=== PATIENT | female | born 1985 | race Caucasian/White ===

== ENCOUNTER 2017-05-26 11:35 | Emergency (ER) | payer SELFPAY ==
[2017-05-26 12:04] VITALS: BP 150/97
--- NOTE | 2017-05-26 12:34 | UC ---
UC Dental HPI - HPI Summary HPI Summary: TWO DAYS OF LEFT LOWER DENTAL PAIN AND SWELLING. HAS APPOINTMENT ON FRIDAY WITH DENTIST. NO FEVER. NO RASHES. - History of Current Complaint Chief Complaint: UCDentalProblem Stated Complaint: DENTAL PAIN Time Seen by Provider: 05/26/17 12:00 Hx Obtained From: Patient Hx Last Menstrual Period: IUD Onset/Duration: Gradual Onset, Lasting Days, Still Present Severity: Moderate Aggravating: Chewing Related History: Previous Dental Care on Same Tooth - Allergies/Home Medications Allergies/Adverse Reactions: Allergies Allergy/AdvReac Type Severity Reaction Status Date / Time Amoxicillin Allergy Hives/Diff. Verified 05/26/17 12:05 Breathing/I tching Diphenhydramine Allergy Palpitation Verified 05/26/17 12:05 [From Benadryl] s Cortisone AdvReac Severe Hives Verified 05/26/17 12:05 PMH/Surg Hx/FS Hx/Imm Hx Previously Healthy: Yes Other History Of: Negative For: Anticoagulant Therapy - Surgical History Surgical History: Yes Surgery Procedure, Year, and Place: GALLBLADDER. . - Family History Known Family History: Negative: Diabetes - Social History Occupation: Employed Full-time Lives: With Family Alcohol Use: Occasionally Substance Use Type: None Smoking Status (MU): Never Smoked Tobacco Have You Smoked in the Last Year: No Review of Systems Constitutional: Negative Skin: Negative Eyes: Negative ENT: Dental Pain Respiratory: Negative Cardiovascular: Negative Gastrointestinal: Negative Genitourinary: Negative Motor: Negative Neurovascular: Negative Musculoskeletal: Negative Neurological: Negative Psychological: Negative All Other Systems Reviewed And Are Negative: Yes Physical Exam Triage Information Reviewed: Yes Appearance: Well-Appearing, No Pain Distress, Well-Nourished Vital Signs: Initial Vital Signs Temp 97.8 F 05/26/17 12:02 Pulse 71 05/26/17 12:02 Resp 20 05/26/17 12:02 BP 150/97 05/26/17 12:02 Pulse Ox 99 05/26/17 12:02 Vital Signs Reviewed: Yes Eye Exam: Normal ENT Exam: Normal ENT: Positive: Normal ENT inspection, Hearing grossly normal, TMs normal Dental Exam: Normal Neck exam: Normal Neck: Positive: Supple, Nontender Respiratory Exam: Normal Respiratory: Positive: Chest non-tender, Lungs clear, Normal breath sounds, No respiratory distress, No accessory muscle use Cardiovascular Exam: Normal Cardiovascular: Positive: RRR, No Murmur, Pulses Normal Abdominal Exam: Normal Musculoskeletal Exam: Normal Musculoskeletal: Positive: Strength Intact, ROM Intact Neurological Exam: Normal Psychological Exam: Normal Skin Exam: Normal Dental Complaint Course/Dx - Differential Dx/Diagnosis Differential Diagnosis/Dx: Odontogenic Pain, Pharyngitis Provider Diagnoses: DENTAL ABSCESS/ODONTOGENIC PAIN (#18, 19) Discharge - Discharge Plan Condition: Stable Disposition: HOME Prescriptions: Clindamycin Cap(NF) [Cleocin 300 mg Cap(NF)] 300 mg PO TID #21 cap HYDROcodone/ACETAMIN 5-325 MG* [[place] 5-325 TAB*] 1 tab PO Q8H PRN #9 tab MDD three tabs PRN Reason: Pain Patient Education Materials: Dental Abscess (ED), Toothache (ED) Referrals: [facility] [place] [facility]IAN REFERRAL [Outside] No Primary Care Phys,NOPCP [Primary Care Provider] - Additional Instructions: PRIMARY CARE: There are four major types of clinical preventive care: immunizations, screening , behavioral counseling (sometimes referred to as lifestyle changes), and chemoprevention. All four apply throughout the life span. It is important to establish and to have access to a Primary Care Physician, not only for follow- up regrding acute and chronic problems, but also for preventative care. Images Dental: 1 - PAIN HERE
== END 2017-05-26 12:33 | disposition home or self-care (01) ==
LOC: UCEAST 11:35
DX: K04.7 Periapical abscess without sinus (principal)
CPT/HCPCS: 99212; G0463

== ENCOUNTER 2017-06-25 09:38 | Emergency (ER) | payer OTHER ==
[2017-06-25 09:52] VITALS: BP 154/83
--- NOTE | 2017-06-25 11:13 | UC ---
Headache HPI - HPI Summary HPI Summary: 31 female presents to the urgent care c/o Headache with dizziness and nausea for the past week. Pt reports her CONNELL is on the temporal area w/o any radiation , or photophobia. It is associated with dizziness on and off and mild nausea. Pt states she was evaluated by the auto fleet manager about 1 month ago and her eye glasses were changed. She has not taking anything to alleviate symptoms. Pt denies fever, tinnitus, hearing loss, SOB, chest pain. She feels dizziness when she stands up or rolls over and feel the room is spinning. - History Of Current Complaint Hx Obtained From: Patient Hx Last Menstrual Period: 06/23/17 ?: No Onset/Duration: Gradual Onset, Lasting Weeks, Still Present Onset Of Symptoms: Still Present Currently Pain Is: Moderate Pain Intensity: 5 - headache Pain Scale Used: 0-10 Numeric Timing: Constant Character: Typical Headache Location of Headache: Temporal Aggravating Factor: Other Associated Signs And Symptoms: Positive: Dizziness, Nausea. Negative: Vomiting , Sinus Pressure, Fever, Neck Pain, Neck Stiffness, Visual Changes - Risk Factors SAH Risk Factors: Negative Meningitis Risk Factors: Negative SDH Risk Factors: Negative Temporal Arteritis Risk Factors: Negative <Nella Isidro - Last Filed: 06/26/17 18:44> <Ely Pro - Last Filed: 06/26/17 20:42> - History Of Current Complaint Chief Complaint: UCHeadache Stated Complaint: DIZZY,VISION CHANGE Time Seen by Provider: 06/25/17 10:53 - Allergies/Home Medications Allergies/Adverse Reactions: Allergies Allergy/AdvReac Type Severity Reaction Status Date / Time Amoxicillin Allergy Hives/Diff. Verified 05/26/17 12:05 Breathing/I tching Diphenhydramine Allergy Palpitation Verified 05/26/17 12:05 [From Benadryl] s Cortisone AdvReac Severe Hives Verified 05/26/17 12:05 PMH/Surg Hx/FS Hx/Imm Hx Previously Healthy: Yes Other History Of: Negative For: Anticoagulant Therapy - Surgical History Surgical History: Yes Surgery Procedure, Year, and Place: GALLBLADDER. . - Family History Known Family History: Positive: Hypertension Negative: Diabetes, Blood Disorder - Social History Occupation: Employed Full-time Lives: With Family Alcohol Use: Occasionally Substance Use Type: None Smoking Status (MU): Never Smoked Tobacco Have You Smoked in the Last Year: No <Nella Isidro Last Filed: 06/26/17 18:44> Review of Systems Constitutional: Negative Skin: Negative Eyes: Negative ENT: Negative Respiratory: Negative Cardiovascular: Negative Gastrointestinal: Negative Genitourinary: Negative Motor: Negative Neurovascular: Negative Musculoskeletal: Negative Neurological: Headache, Other - dizziness Psychological: Negative All Other Systems Reviewed And Are Negative: Yes <DariojaNella gibbs Last Filed: 06/26/17 18:44> Physical Exam Triage Information Reviewed: Yes Appearance: Well-Appearing, No Pain Distress, Well-Nourished, Obese Vital Signs: Initial Vital Signs Temp 98.2 F 06/25/17 09:48 Pulse 82 06/25/17 09:48 Resp 06/25/17 09:48 BP 154/83 06/25/17 09:48 Pulse Ox 100 06/25/17 09:48 Vital Signs Reviewed: Yes Eye Exam: Normal Eyes: Positive: Conjunctiva Clear - PERRLA, EOMI, fundi grosly normal, no nystagmus observed ENT Exam: Normal ENT: Positive: Normal ENT inspection, Hearing grossly normal, Pharynx normal, TMs normal Dental Exam: Normal Neck exam: Normal Neck: Positive: Supple, Nontender, No Lymphadenopathy Respiratory Exam: Normal Respiratory: Positive: Chest non-tender, Lungs clear, Normal breath sounds Cardiovascular Exam: Normal Cardiovascular: Positive: RRR, No Murmur, Pulses Normal, Brisk Capillary Refill Abdominal Exam: Normal Abdomen Description: Positive: Nontender, No Organomegaly, Soft. Negative: CVA Tenderness (R), CVA Tenderness (L) Bowel Sounds: Positive: Present Musculoskeletal Exam: Normal Musculoskeletal: Positive: Strength Intact, ROM Intact, No Edema Neurological Exam: Normal - A&O x3, CNII-CNXII w/normal limits. Romberg test negative Psychological Exam: Normal Skin Exam: Normal <Nella Isidro Last Filed: 06/26/17 18:44> Vital Signs: Initial Vital Signs Temp 98.2 F 06/25/17 09:48 Pulse 82 06/25/17 09:48 Resp 06/25/17 09:48 BP 154/83 06/25/17 09:48 Pulse Ox 100 06/25/17 09:48 <Ely Pro - Last Filed: 06/26/17 20:42> Headache Course/Dx - Course Course Of Treatment: 31 female presents to the urgent care c/o Headache with dizziness and nausea for the past week. Pt reports her CONNELL is on the temporal area w/o any radiation, or photophobia. It is associated with dizziness on and off and mild nausea. Pt states she was evaluated by the auto fleet manager about 1 month ago and her eye glasses were changed. She has not taking anything to alleviate symptoms. Pt denies fever, tinnitus, hearing loss, SOB, chest pain. She feels dizziness when she stands up or rolls over and feel the room is spinning. Hx obtained. PE: WNL. The Mayank-Hallpike test performed and dizziness was reproducible, however no nystagmus was observed. Pt Rx Meclizine PO and Naproxen to alleviate symptoms and f/u with PCP an ENT for further evaluation and treatment. Pt BP elevated w/o Hx of HTN, Pt advised on decrease salt intake , monitor BP and f/u with PCP for further evaluation and treatment. Pt understood and agreed and left the clinic ambulating. - Differential Dx/Diagnosis Differential Diagnosis/HQI/PQRI: Migraine, Sinus Headache, Tension Headache, Viral Syndrome, Other - Labyrinthitis, VPPV Provider Diagnoses: 1- Headache. 2-Dizziness. 3-Elevated BP w/o Hx of HTN <Nella Isidro - Last Filed: 06/26/17 18:44> Discharge <Nella Isidro - Last Filed: 06/26/17 18:44> <Ely Pro - Last Filed: 06/26/17 20:42> - Discharge Plan Condition: Stable Disposition: HOME Prescriptions: Meclizine TAB* [Antivert 12.5 TAB*] 25 mg PO TID #30 tab Naproxen TAB* [Naprosyn 250 mg TAB*] 500 mg PO Q8H PRN #30 tab PRN Reason: Headache Patient Education Materials: Acute Headache (ED), Dizziness (ED), Low Sodium Diet (ED) Referrals: No Primary Care Phys,NOPCP [Primary Care Provider] - [facility] [place] [facility]IAN REFERRAL [Outside] - 1 Week Sam Chaparro MD [Medical Doctor] - If Needed Additional Instructions: Please take medications as instructed to alleviate symptoms. If Headache and dizziness increases despite medications please go immediately to the ER for further management. Otherwise f/u with a PCP forn the [facility] referral center for further evaluation and treatment. Decrease salt in your diet and monitor your BP and f/u with PCP. Attestation Statement User Type: Provider - I was available for consult. This patient was seen by the advanced practice provider. The patient was not presented to, seen by, or examined by me.-Dasha <Ely Pro - Last Filed: 06/26/17 20:42>
== END 2017-06-25 11:23 | disposition home or self-care (01) ==
LOC: UCEAST 09:38 → MERGE 09:38 → UCEAST 11:23
DX: R51 Headache (principal); R42 Dizziness and giddiness; R03.0 Elevated blood-pressure reading, without diagnosis of hypertension; R11.0 Nausea; Z90.49 Acquired absence of other specified parts of digestive tract; Z88.1 Allergy status to other antibiotic agents
CPT/HCPCS: 99212; G0463

== ENCOUNTER 2017-07-24 10:18 | Emergency (ER) | payer OTHER ==
[2017-07-24 10:45] VITALS: BP 144/81
--- NOTE | 2017-07-24 16:14 | UC ---
Throat Pain/Nasal Lexx HPI - HPI Summary HPI Summary: st, fever, swollen tonsild x 2 days. concerned for strep. - History of Current Complaint Chief Complaint: UCGeneralIllness Stated Complaint: SORE THROAT Time Seen by Provider: 07/24/17 10:37 Hx Obtained From: Patient Hx Last Menstrual Period: 07/04/17 ?: No Onset/Duration: Sudden Onset, Lasting Days, Still Present Severity: Moderate Pain Intensity: 4 Pain Scale Used: 0-10 Numeric Associated Signs & Symptoms: Positive: Dysphagia, Fever. Negative: Drooling, Wheezing, Hoarseness, Sinus Discomfort, Nasal Discharge, Vomiting, Rash - Allergies/Home Medications Allergies/Adverse Reactions: Allergies Allergy/AdvReac Type Severity Reaction Status Date / Time Amoxicillin Allergy Hives/Diff. Verified 07/24/17 10:38 Breathing/I tching Diphenhydramine Allergy Palpitation Verified 07/24/17 10:38 [From Benadryl] s Cortisone AdvReac Severe Hives Verified 07/24/17 10:38 Home Medications: Home Medications Propranolol TAB* [Inderal TAB*] 20 mg PO BID 07/24/17 [History Confirmed ] PMH/Surg Hx/FS Hx/Imm Hx - Additional Past Medical History Additional PMH: obesity Other Cardiovascular History: neg htn Other Respiratory History: neg asthma Other History Of: Negative For: Anticoagulant Therapy - Surgical History Surgical History: Yes Surgery Procedure, Year, and Place: GALLBLADDER. . - Family History Known Family History: Positive: Hypertension Negative: Diabetes, Blood Disorder - Social History Alcohol Use: Occasionally Substance Use Type: None Smoking Status (MU): Never Smoked Tobacco Have You Smoked in the Last Year: No Review of Systems Constitutional: Fever Skin: Negative Eyes: Negative ENT: Sore Throat Respiratory: Negative Cardiovascular: Negative Gastrointestinal: Negative Neurological: Negative Psychological: Negative All Other Systems Reviewed And Are Negative: Yes Physical Exam Triage Information Reviewed: Yes Appearance: Well-Appearing, No Pain Distress, Obese Vital Signs: Initial Vital Signs Temp 98.3 F 07/24/17 10:42 Pulse 103 07/24/17 10:42 Resp 20 07/24/17 10:42 BP 144/81 07/24/17 10:42 Pulse Ox 98 07/24/17 10:42 Vital Signs Reviewed: Yes Eyes: Positive: Conjunctiva Clear. Negative: Discharge ENT: Positive: Hearing grossly normal, Pharyngeal erythema, TMs normal, Tonsillar swelling, Tonsillar exudate. Negative: Nasal congestion, Nasal drainage, Trismus, Muffled/hoarse voice Neck: Positive: Supple, Tenderness @, Enlarged Nodes @ Respiratory: Positive: Lungs clear, Normal breath sounds, No respiratory distress, No accessory muscle use Cardiovascular: Positive: No Murmur, Tachycardia Musculoskeletal Exam: Normal Neurological: Positive: Alert, Muscle Tone Normal Psychological: Positive: Age Appropriate Behavior Skin Exam: Normal Throat Pain/Nasal Course/Dx - Course Course Of Treatment: meds reviewded. elevated bp likely d/t pt condition - Differential Dx/Diagnosis Differential Diagnosis/HQI/PQRI: Pharyngitis, Tonsillitis, URI Provider Diagnoses: strep, elevated bp without dx of htn Discharge - Discharge Plan Condition: Stable Disposition: HOME Prescriptions: Clindamycin Cap(NF) [Clindamycin Cap 300 mg Cap(NF)] 300 mg PO TID #30 cap predniSONE TAB* [Deltasone TAB*] 40 mg PO DAILY #10 tab Patient Education Materials: Strep Throat (ED) Referrals: No Primary Care Phys,NOPCP [Primary Care Provider] - Additional Instructions: ANTIBIOTIC THERAPY: You have been given an antibiotic prescription. It's important that you take all the medication, unless instructed otherwise by your physician. Failure to complete the entire course can result in relapse of your condition. Common side effects of antibiotics include nausea, intestinal cramping, or diarrhea. Women may develop vaginal yeast infections, and babies can get yeast (thrush) in the mouth following the use of antibiotics. Contact your physician if you develop significant side effects from this medication. Allergy to this antibiotic can result in hives, wheezing, faintness, or itching. If symptoms of allergy occur, stop the medication and call the doctor. ANYTIME YOU TAKE AN ANTIBIOTIC, IT IS IMPORTANT TO REPLENISH THE BODY'S SUPPLY OF "GOOD BACTERIA." YOU CAN GET GOOD BACTERIA FROM HIGH QUALITY CULTURED FOODS SUCH LOCAL YOGURT, SOUR KRAUT, FAVIO JONI, NATURALLY FERMENTED PICKLES AND PROBIOTIC DRINKS. YOU CAN ALSO GET GOOD BACTERIA FROM A PROBIOTIC SUPPLEMENT. FOLLOW-UP CARE: You should establish with a private physician for follow-up care. If you are unable to get a timely appointment, or if you are worsening, call us or return for re-evaluation. An additional resource available to assist in finding the appropriate physician for your health care needs is the Physician Referral Center. You may contact them by calling [phone].
== END 2017-07-24 12:04 | disposition home or self-care (01) ==
LOC: UCEAST 10:18
DX: J02.0 Streptococcal pharyngitis (principal); I10 Essential (primary) hypertension
CPT/HCPCS: 87651; 99212; G0463

== ENCOUNTER 2017-11-20 17:06 | Emergency (ER) | payer OTHER ==
[2017-11-20] MEDS ORDERED: Sulfamethox/Trimethoprim DS 800/160* TAB PO ONE (18:16)
--- NOTE | 2017-11-20 18:41 | ED ---
Skin Complaint - HPI Summary HPI Summary: Pt here w/ ruptured pimple on face followed by pain, swelling. She noticed pimple yesterday - popped it today then also unroofed a scab with tweezers. She feels the area is quite swollen and admits it did not rupture like a typical pimple - no pore identified and seemed like more purulent drainage was expressed than expected. Denies fever, chills but has been feeling run down in general as is currently admitted to the hospital. He has h/o MRSA and she's concerned this could be MRSA infection as well. Denies CONNELL, visual change, trouble breathing or swelling, neck pain/stiffness. NOTE: IUD in place - History of Current Complaint Chief Complaint: EDGeneral Time Seen by Provider: 11/20/17 18:07 Stated Complaint: SORE ON LT CHEEK Hx Obtained From: Patient Hx Last Menstrual Period: 07/04/17 Pain Intensity: 0 - Allergy/Home Medications Allergies/Adverse Reactions: Allergies Allergy/AdvReac Type Severity Reaction Status Date / Time Amoxicillin Allergy Hives/Diff. Verified 07/24/17 10:38 Breathing/I tching Diphenhydramine Allergy Palpitation Verified 07/24/17 10:38 [From Benadryl] s Cortisone AdvReac Severe Hives Verified 07/24/17 10:38 PMH/Surg Hx/FS Hx/Imm Hx Previously Healthy: Yes Endocrine/Hematology History: Denies: Hx Anticoagulant Therapy, Hx Diabetes, Autoimmune Disease Cardiovascular History: Denies: Hx Hypertension, Hx Pacemaker/ICD Respiratory History: Denies: Hx Asthma Sensory History: Denies: Hx Hearing Aid Psychiatric History: Denies: Hx Panic Disorder - Surgical History Surgery Procedure, Year, and Place: GALLBLADDER. . 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 Negative: Fever, Chills Eyes: Negative Negative: Photophobia, Blurred Vision, Diplopia, Drainage, Erythema ENT: Negative Negative: Dental Pain, Sore Throat, Ear Ache, Nasal Discharge Cardiovascular: Negative Respiratory: Negative Gastrointestinal: Negative Positive: no symptoms reported Musculoskeletal: Negative Skin: Other - wound on face Neurological: Negative Psychological: Normal All Other Systems Reviewed And Are Negative: Yes Physical Exam Triage Information Reviewed: Yes Vital Signs On Initial Exam: Initial Vitals Temp Pulse Resp BP Pulse Ox 98.2 F 85 16 158/95 98 11/20/17 17:10 11/20/17 17:10 11/20/17 17:10 11/20/17 17:10 11/20/17 17:10 Vital Signs Reviewed: Yes Appearance: Positive: Well-Appearing - appears fatigued, No Pain Distress, Well- Nourished Skin: Positive: Warm, Dry - 3mm area of scabbing over Lt nasolabial fold - underlying tissue w/ mild edema - TTP - no erythema, no obvious edema, no drainage, no fever to touch Head/Face: Positive: Normal Head/Face Inspection - NTTP Eyes: Positive: Normal, EOMI, Conjunctiva Clear. Negative: Conjunctiva Inflammed, Discharge ENT: Positive: Normal ENT inspection, Hearing grossly normal, Pharynx normal. Negative: Nasal congestion, Nasal drainage Neck: Positive: Supple, No Lymphadenopathy, Tenderness @ - Lt cc LN's are TTP but non-palpable Respiratory/Lung Sounds: Positive: Clear to Auscultation, Breath Sounds Present. Negative: Stridor, Tracheal Deviation Cardiovascular: Positive: Normal, RRR Abdomen Description: Positive: Soft Musculoskeletal: Positive: Normal, Strength/ROM Intact Neurological: Positive: Normal, Sensory/Motor Intact, Alert, Oriented to Person Place, Time, CN Intact II-III Psychiatric: Positive: Normal Diagnostics - Vital Signs Vital Signs Temp Pulse Resp BP Pulse Ox 11/20/17 17:10 98.2 F 85 16 158/95 98 - Laboratory Lab Statement: Any lab studies that have been ordered have been reviewed, and results considered in the medical decision making process. Course/Dx - Course Course Of Treatment: Cleaned wound and attempted to collect drainage but none present. Discussion w/ pt about attempting to heat area and unroof scab to collect drainage (if present) and/or simply initiating anbx to cover MRSA. She prefers the latter. Since she will be staying w/ her here in hospital [facility], requesting 1st dose now and will pick up man remaining dose tomorrow AM at [facility] pharmacy. Advised on conservative care and danger s/sx of when to return to ED or f/u w/ PCP. Pt agrees w/ plan. - Diagnoses Provider Diagnoses: Facial abscess Discharge - Discharge Plan Condition: Stable Disposition: HOME Prescriptions: Sulfamethox/Trimethoprim DS* [Bactrim DS 800/160 TAB*] 1 tab PO BID #19 tab Patient Education Materials: Abscess (ED) Referrals: [facility] PHYS[facility]IAN REFERRAL [Outside] No Primary Care Phys,NOPCP [Primary Care Provider] - Additional Instructions: Wash daily with antibacterial soap and water - do not occlude with ointments, make-up, etc Apply warm compresses, preferably with epsom salt solution Complete antibiotics as directed Follow-up with PCP if symptoms persist, wound starts draining and pain persists , etc *If you develop fever, chills, acute facial edema, difficulty breathing/ swallowing, pain with eye movement, return to ED
[2017-11-20 18:55] VITALS: BP 145/102
== END 2017-11-20 18:54 | disposition home or self-care (01) ==
LOC: ED 17:06
DX: L02.01 Cutaneous abscess of face (principal); Z88.0 Allergy status to penicillin
CPT/HCPCS: A9270-GY

== ENCOUNTER 2018-04-03 19:51 | Emergency (ER) | payer OTHER ==
[2018-04-03 21:12] LABS: ABS Basophils 0.1 10^3/ul (0-0.2); ABS Eosinophils 0.1 10^3/ul (0-0.6); ABS Lymphocytes 1.1 10^3/ul (1.0-4.8); ABS Monocytes 0.6 10^3/ul (0-0.8); ABS Neutrophils 13.8 10^3/ul (1.5-7.7); ABS Nucleated RBC 0 10^3/ul; Eosinophil % 0.4 % (0-6); Hematocrit 42 % (35-47); Hemoglobin 13.8 g/dl (12.0-16.0); Lymphocyte % 7.1 % (25-47); Mean Corpuscular HGB Conc 33 g/dl (31-36); Mean Corpuscular Hemoglobin 28 pg (27-31); Mean Corpuscular Volume 86 fL (80-97); Nucleated Red Blood Cells % 0; Platelet Count 235 10^3/ul (150-450); Red Cell Distribution Width 14 % (10.5-15); White Blood Count 15.6 10^3/ul (3.5-10.8)
[2018-04-03] MEDS ORDERED: LORazepam INJ* 2 MG/ML 1 ML VIAL IV PUSH ONE (21:26)
[2018-04-03] MEDS ORDERED: Ondansetron ODT TAB* 4 MG PO ONE (21:27)
[2018-04-03 21:30] LABS: EGFR Non-African American 73.6 (>60)
--- NOTE | 2018-04-03 21:33 | RAD ---
HISTORY: Head injury, right-sided facial injury COMPARISONS: September 15, 2013 TECHNIQUE: Multiple contiguous axial CT scans were obtained of the head without intravenous contrast. FINDINGS: HEMORRHAGE/INFARCT: There is no hemorrhage or acute infarct. MASSES/SHIFT: There is no mass or shift. EXTRA-AXIAL SPACES: There are no extra-axial fluid collections. SULCI AND VENTRICLES: The sulci and ventricles are normal in size and position for the patient's stated age. CEREBRUM: There are no focal parenchymal abnormalities. BRAINSTEM: There are no focal parenchymal abnormalities. CEREBELLUM: There are no focal parenchymal abnormalities. VESSELS: The vessels are grossly normal. PARANASAL SINUSES: The paranasal sinuses are clear. ORBITS: The orbits are unremarkable. BONES AND SOFT TISSUE: No bone or soft tissue abnormalities are noted. OTHER: None IMPRESSION: NO ACUTE INTRACRANIAL PATHOLOGY.
[2018-04-03] MEDS ORDERED: Iohexol 300* (CONTRAST) 10 ML SDV IV ONE (21:35)
--- NOTE | 2018-04-03 21:36 | RAD ---
HISTORY: Head injury, facial injury COMPARISONS: None TECHNIQUE: Multiple contiguous axial CT scans were obtained of the face without intravenous contrast, with coronal and sagittal multiplanar reformations. FINDINGS: BONES: There is no displaced fracture or dislocation. The orbital rim is intact. The zygomatic arch is intact. The pterygoid plates are intact. ORBITS: The globes are round. The optic nerves are symmetric. The extraocular musculature is normal. There is no post septal or intraconal inflammatory change. There is no retrobulbar hematoma. PARANASAL SINUSES: The paranasal sinuses are clear. BRAIN AND SOFT TISSUE: There is soft tissue swelling along the right lower face OTHER: There is carious disease. IMPRESSION: NO FACIAL FRACTURE. SOFT TISSUE SWELLING
[2018-04-03] MEDS ORDERED: Ketorolac INJ* 30 MG/ML 1 ML VIAL IV PUSH ONE (22:21)
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
[2018-04-03] MEDS ORDERED: oxyCODONE/Acetamin 5/325 MG* TAB PO ONE (23:27)
[2018-04-03] MEDS ORDERED: traMADol TAB* 50 MG PO ONE (23:30)
[2018-04-04 00:08] VITALS: BP 135/90
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
== END 2018-04-04 00:11 | disposition home or self-care (01) ==
LOC: ED 19:51
DX: R07.89 Other chest pain (principal)
CPT/HCPCS: 36415; 70450; 70486; 71260; 74177; 80053; 84702; 85025; 96374; 96375; 99283; A9270-GY; J1885; J2060; Q9967

== ENCOUNTER 2018-05-23 08:50 | Emergency (ER) | payer OTHER ==
[2018-05-23 09:00] VITALS: BP 127/74
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
== END 2018-05-23 09:24 | disposition home or self-care (01) ==
LOC: UCEAST 08:50
DX: B00.1 Herpesviral vesicular dermatitis (principal); L03.311 Cellulitis of abdominal wall; L03.317 Cellulitis of buttock; B95.62 Methicillin resistant Staphylococcus aureus infection as the cause of diseases classified elsewhere; Z88.0 Allergy status to penicillin; Z88.8 Allergy status to other drugs, medicaments and biological substances; Z82.49 Family history of ischemic heart disease and other diseases of the circulatory system; Z87.891 Personal history of nicotine dependence
CPT/HCPCS: 87070; 87205; 87529; 87798; 99212; G0463

== ENCOUNTER 2018-08-07 17:45 | Emergency (ER) | payer OTHER ==
[2018-08-07 18:12] VITALS: BP 125/86
[2018-08-07] MEDS ORDERED: Lidocaine 1% MPF* 2 ML VIAL INJ ONE (18:37)
[2018-08-07] MEDS ORDERED: Lidocaine 1%* 5 ML VIAL ONE (18:38)
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
--- NOTE | 2018-08-08 15:46 | UC ---
- Progress Note Progress Note: Lab called with Positive Staph and MRSA result. Pt on Bactrim. No change Discharge - Sign-Out/Discharge Documenting (check all that apply): Post-Discharge Follow Up All imaging exams completed and their final reports reviewed: No Studies - Discharge Plan Condition: Stable Disposition: HOME Prescriptions: Sulfamethox/Trimethoprim DS* [Bactrim DS 800/160 TAB*] 1 tab PO BID #220 tab Sulfamethox/Trimethoprim DS* [Bactrim DS 800/160 TAB*] 1 tab PO BID #20 tab Patient Education Materials: Cellulitis (ED), Abscess (ED) Referrals: [facility] [place] [facility] [Outside] Additional Instructions: Take medications as instructed and adhere to plan Take Acetaminophen or ibuprofen for pain or fever Increase your fluid intake Return to the or go to the emergency department if symptoms worsen Follow-up with primary care physician in next 2-3 days - Billing Disposition and Condition Condition: STABLE Disposition: Home
--- NOTE | 2018-08-10 17:45 | UC ---
- Progress Note Progress Note: 08/10/2018 Wound culture positive for MRSA and Staph Aureus. Pt Rx Bactrim PO Culture senstivity positive for Bactrim PO. No change Nella Isidro PA-C Discharge - Sign-Out/Discharge Documenting (check all that apply): Patient Departure - D/C home All imaging exams completed and their final reports reviewed: No Studies - Discharge Plan Condition: Stable Disposition: HOME Prescriptions: Sulfamethox/Trimethoprim DS* [Bactrim DS 800/160 TAB*] 1 tab PO BID #220 tab Sulfamethox/Trimethoprim DS* [Bactrim DS 800/160 TAB*] 1 tab PO BID #20 tab Patient Education Materials: Cellulitis (ED), Abscess (ED) Referrals: [facility] [place] [facility] [Outside] Additional Instructions: Take medications as instructed and adhere to plan Take Acetaminophen or ibuprofen for pain or fever Increase your fluid intake Return to the or go to the emergency department if symptoms worsen Follow-up with primary care physician in next 2-3 days - Billing Disposition and Condition Condition: STABLE Disposition: Home
== END 2018-08-07 19:15 | disposition home or self-care (01) ==
LOC: UCEAST 17:45
DX: L02.413 Cutaneous abscess of right upper limb (principal); L03.113 Cellulitis of right upper limb; B95.62 Methicillin resistant Staphylococcus aureus infection as the cause of diseases classified elsewhere; Z88.0 Allergy status to penicillin; Z88.8 Allergy status to other drugs, medicaments and biological substances; Z87.891 Personal history of nicotine dependence
CPT/HCPCS: 10060; 87070; 87077; 87186; 87205; 87640; 87641; 99212; G0463

== ENCOUNTER 2018-11-09 19:57 | Emergency (ER) | payer OTHER ==
[2018-11-09] MEDS ORDERED: NS 0.9% 1000 ML* 1,000 ML IV ONE (20:45)
[2018-11-09] MEDS ORDERED: Metoclopramide IV* 5 MG/ML 2 ML VIAL IV SLOW PU ONE (20:45)
[2018-11-09] MEDS ORDERED: Famotidine IV* 10 MG/ML 2 ML (20 mg) IV SLOW PU ONE (20:46)
--- NOTE | 2018-11-09 21:06 | ED ---
HPI Chest Pain - HPI Summary HPI Summary: Patient is a 33 y/o F presenting to ED with complaints of left sided chest pain/ epigastric pain with N/V onsetting today. Nausea onset this morning upon waking from sleep, pain onset at 1430. PSHx of section and cholecystectomy. She notes there is a possibility of , unsure of LNMP. Diarrhea is denied. On triage, pain is rated 6/10, nothing is noted to aggravate/alleviate Sx. Home medications and allergies are reviewed. - History of Current Complaint Chief Complaint: EDChestWallPain Time Seen by Provider: 11/09/18 20:34 Hx Obtained From: Patient Hx Last Menstrual Period: IUD Onset/Duration: Started Hours Ago - nausea this morning, pain 1430, Still Present Timing: Constant, Lasting Hours - nausea this morning, pain 1430 Current Severity: Moderate - 6/10 Pain Intensity: 6 Pain Scale Used: 0-10 Numeric - 6/10 Chest Pain Location: Discrete at: - left chest/epigastric area Aggravating Factor(s): Nothing Alleviating Factor(s): Nothing Associated Signs and Symptoms: Positive: Chest Pain - left, Nausea, Abdominal Pain - epigastric, Vomiting, Other: - no diarrhea - Allergy/Home Medications Allergies/Adverse Reactions: Allergies Allergy/AdvReac Type Severity Reaction Status Date / Time amoxicillin Allergy Swelling Verified 11/09/18 20:03 Of Face,Lips,& Throat cortisone Allergy Hives Verified 11/09/18 20:03 diphenhydramine Allergy Palpitation Verified 11/09/18 20:03 s PMH/Surg Hx/FS Hx/Imm Hx Endocrine/Hematology History: Denies: Hx Anticoagulant Therapy, Hx Diabetes Cardiovascular History: Denies: Hx Hypertension, Hx Pacemaker/ICD Respiratory History: Denies: Hx Asthma History: Denies: Hx Renal Disease Sensory History: Denies: Hx Hearing Aid Psychiatric History: Denies: Hx Panic Disorder - Surgical History Surgery Procedure, Year, and Place: GALLBLADDER. . Infectious Disease History: No Infectious Disease History: Denies: Hx Clostridium Difficile, Hx Hepatitis, Hx Human Immunodeficiency Virus (HIV), Hx of Known/Suspected MRSA, Hx Shingles, Hx Tuberculosis, Hx Known/ Suspected VRE, Hx Known/Suspected VRSA, History Other Infectious Disease, Traveled Outside the [place] in Last 30 Days - Family History Known Family History: Positive: Hypertension Negative: Diabetes, Blood Disorder - Social History Alcohol Use: None Hx Substance Use: No Substance Use Type: Reports: None Hx Tobacco Use: No Smoking Status (MU): Former Smoker Have You Smoked in the Last Year: No Review of Systems Positive: Chest Pain Positive: Abdominal Pain, Vomiting, Nausea. Negative: Diarrhea All Other Systems Reviewed And Are Negative: Yes Physical Exam - Summary Physical Exam Summary: VITAL SIGNS: Reviewed. GENERAL: Patient is a well-developed and morbidly obese female who is lying comfortable in the stretcher. Patient is not in any acute respiratory distress. HEAD AND FACE: No signs of trauma. No ecchymosis, hematomas or skull depressions. No sinus tenderness. EYES: PERRLA, EOMI x 2, No injected conjunctiva, no nystagmus. EARS: Hearing grossly intact. Ear canals and tympanic membranes are within normal limits. MOUTH: Oropharynx within normal limits. NECK: Supple, trachea is midline, no adenopathy, no JVD, no carotid bruit, no c- spine tenderness, neck with full ROM. CHEST: Symmetric, no tenderness at palpation LUNGS: Clear to auscultation bilaterally. No wheezing or crackles. CVS: Regular rate and rhythm, S1 and S2 present, no murmurs or gallops appreciated. ABDOMEN: Soft, mild RUQ and epigastric tenderness. No signs of distention. No rebound no guarding, and no masses palpated. Bowel sounds are normal. EXTREMITIES: FROM in all major joints, no edema, no cyanosis or clubbing. NEURO: Alert and oriented x 3. No acute neurological deficits. Speech is normal and follows commands. SKIN: Dry and warm Triage Information Reviewed: Yes Vital Signs On Initial Exam: Initial Vitals Temp Pulse Resp BP Pulse Ox 98.6 F 86 18 153/95 97 11/09/18 20:01 11/09/18 20:01 11/09/18 20:01 11/09/18 20:01 11/09/18 20:01 Vital Signs Reviewed: Yes Diagnostics - Vital Signs Vital Signs Temp Pulse Resp BP Pulse Ox 11/09/18 20:01 98.6 F 86 18 153/95 97 - Laboratory Result Diagrams: 11/09/18 20:50 11/09/18 20:50 Lab Statement: Any lab studies that have been ordered have been reviewed, and results considered in the medical decision making process. - EKG 2033 Cardiac Rate: NL - rate of 70 BPM EKG Rhythm: Sinus Rhythm Summary of EKG Findings: EKG showed sinus rhythm with rate of 70 BPM, Normal axis. Normal interval. No ischemic changes. Re-Evaluation - Re-Evaluation First Eval Re-Evaluation Time: 21:47 Comment: Results of labs and tests were discussed with patient, patient will be discharged to home. Chest Pain Course/Dx - Course Course Of Treatment: Patient is a 33 y/o F presenting to ED with complaints of left sided chest pain/epigastric pain with N/V onsetting today. Nausea onset this morning upon waking from sleep, pain onset at 1430. PSHx of section and cholecystectomy. She notes there is a possibility of , unsure of LNMP. Diarrhea is denied. On physical exam, mild epigastric and RUQ tenderness noted. Patient is morbidly obese. EKG showed sinus rhythm with rate of 70 BPM, Normal axis. Normal interval. No ischemic changes. Abnormal labs included WBC 11.8, absolute neuts 8, glucose 106, AST 10, total protein 6.3. CRP was 3.73, trop 0, amylase 29, lipase 13, Beta HCG < 0.6. During ED course, patient received fluids, reglan 10 mg IV SLOW PU ONCE ONE and Pepcid 20 mg IV SLOW PU ED ONCE ONE. Results of labs and tests were discussed with patient, patient discharged to home, patient is agreeable. - Diagnoses Provider Diagnoses: Vomiting, Gastritis Discharge - Sign-Out/Discharge Documenting (check all that apply): Patient Departure - discharge - Discharge Plan Condition: Stable Disposition: HOME Prescriptions: Metoclopramide TAB* [Reglan TAB*] 10 mg PO Q6H PRN #20 tab PRN Reason: Nausea/Vomiting Pantoprazole TAB (NF) [Protonix TAB (NF)] 40 mg PO DAILY #30 tab Patient Education Materials: Gastritis (ED), Acute Nausea and Vomiting (ED) Referrals: [facility] [Outside] - 2 Days Additional Instructions: RETURN TO THE EMERGENCY DEPARTMENT FOR CHANGING OR WORSENING SYMPTOMS. FOLLOW UP WITH PRIMARY CARE PHYSICIAN IN 1-2 DAYS. - Attestation Statements Document Initiated by Scribe: Yes Documenting Scribe: ALINA ZARAGOZA Provider For Whom Isabelibe is Documenting (Include Credential): ZOE DANG MD Scribe Attestation: ALINA Jaquez , scribed for ZOE DANG MD on 11/09/18 at 2233. Status of Scribe Document: Ready
[2018-11-09 21:19] LABS: ABS Basophils 0 10^3/ul (0-0.2); ABS Eosinophils 0.5 10^3/ul (0-0.6); ABS Lymphocytes 2.6 10^3/ul (1.0-4.8); ABS Monocytes 0.6 10^3/ul (0-0.8); ABS Nucleated RBC 0 10^3/ul; Eosinophil % 4.5 %; Hematocrit 42 % (35-47); Hemoglobin 13.6 g/dl (12.0-16.0); Lymphocyte % 22.1 %; Mean Corpuscular HGB Conc 32 g/dl (31-36); Mean Corpuscular Hemoglobin 29 pg (27-31); Mean Corpuscular Volume 89 fL (80-97); Mean Platelet Volume 10.4 fL (7.4-10.4); Nucleated Red Blood Cells % 0.1; Platelet Count 197 10^3/ul (150-450); Red Cell Distribution Width 14 % (10.5-15); White Blood Count 11.8 10^3/ul (3.5-10.8)
[2018-11-09 21:24] LABS: EGFR Non-African American 89.3 (>60)
[2018-11-09 21:47] VITALS: BP 105/60
== END 2018-11-09 22:00 | disposition home or self-care (01) ==
LOC: ED 19:57
DX: K29.70 Gastritis, unspecified, without bleeding (principal); R11.10 Vomiting, unspecified; R07.89 Other chest pain; Z32.02 Encounter for pregnancy test, result negative; Z90.49 Acquired absence of other specified parts of digestive tract; Z88.0 Allergy status to penicillin; Z88.8 Allergy status to other drugs, medicaments and biological substances; Z87.891 Personal history of nicotine dependence
CPT/HCPCS: 36415; 80053; 82150; 83690; 83735; 84484; 84702; 85025; 85730; 86140; 93005; 96374; 96375; 99283; J2765

== ENCOUNTER 2018-12-03 08:31 | Emergency (ER) | payer OTHER ==
--- OUTSIDE RECORDS SUMMARY | 2018-12-03 08:35 | XMS REPORT | Continuity of Care Document ---
:1985 External Reference #:[id number] Author Name Fernie Comer MD Address [address] [place] [address] Care Team Providers Name Role Phone Kofi Moon M.D. 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 Payers Type Date Identification Numbers Payment Provider Subscriber Effective: 2014 Policy Number: [id number] [facility] Vaishnavi Litzy PayID: [id number] [address] [place] [address] Policy Number: [id number] Medicaid [place] Vaishnavi Mcghee PayID: [id number] [address] [place] [address] Advance Directives Description No Information Available Problems Description No Information Family History Date Family Member(s) Problem(s) Comments Father Hypertension Mother Hypertension Children 3 First Son A&W First Daughter A&W Second Daughter A&W Siblings 1 Siblings Oldest of 2 children First Brother A&W Paternal Grandfather due to Unknown Causes () - at age 64 Paternal Grandmother Hypertension Paternal Grandmother Melanoma Maternal Grandfather due to Farming Accident () - at age 50+ Maternal Grandmother Breast Cancer Maternal Grandmother Colon Cancer Maternal Grandmother [place] Social History Type Date Description Comments Sex Unknown Education Highest level completed, 12th grade Marital Status Legal Status: Legally in process of divorce Lives With Daughters Lives With Son Lives With Boyfriend Sleep Typically sleeps 8 hours a night Pets 1 dog 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 Cigarette Use Former Cigarette Smoker ETOH Use Occasionally consumes alcohol Recreational Drug Use Denies Drug Use Tobacco Use Start: Unknown Patient is a former End: Unknown smoker Smoking Status Reviewed: 11/10/18 Patient is a former smoker Exercise Type/Frequency Exercises sporadically Seat Belt/Car Seat Always uses seat belt Currently Active Patient is currently sexually active Contraceptive Methods Current methods include levonorgestrel IUD STD's No STD History Allergies, Adverse Reactions, Alerts Date Description Reaction Status Severity Comments 06/20/2016 Amoxicillin Active Medications Medication Date Status Form Strength Qnty SIG Indications Ordering Provider Multi Active Capsules 27-0.8-228m 100cap take one Phaelon +Dha 018 g s tab by MD Nahomi mouth daily (any pnv with dha 200-400 as covered by insurance ) No Active Hx Unknown Medications 018 - 018 Mirena (52 MG) Hx IUD 20mcg/24HR Rona Roth MD 018 Iron 0 Hx Tablets Unknown 000 - 018 Immunizations Description No Information Available Vital Signs Date Vital Result Comment 11/10/2018 9:13am BP Systolic 128 mmHg BP Diastolic 84 mmHg Height 68 inches 5'8" Weight 258.00 lb BMI (Body Mass Index) 39.2 kg/m2 4 Parity 3 09/02/2016 8:58am BP Systolic 140 mmHg BP Diastolic 84 mmHg Height 68 inches 5'8" Weight 303.00 lb BMI (Body Mass Index) 46.1 kg/m2 Last Menstrual Period 0918737 4 Parity 3 07/29/2016 10:42am BP Systolic 124 mmHg BP Diastolic 78 mmHg Height 68 inches 5'8" Weight 304.00 lb BMI (Body Mass Index) 46.2 kg/m2 Last Menstrual Period 6475254 4 Parity 3 3 LC 1 set twins 06/20/2016 11:20am BP Systolic 124 mmHg BP Diastolic 76 mmHg Height 68 inches 5'8" Weight 306.00 lb BMI (Body Mass Index) 46.5 kg/m2 4 Parity 2 3 LC Results Test Date Facility Test Result H/L Range Note Laboratory test 07/29/2016 [facility] Surgical SEE RESULT [address] [place] [address] Pathology BELOW [phone] 1 SEE RESULT BELOW Name: VAISHNAVI MCGHEE : [address]: Cecille Roth MD Acct: [id number] Unit: [id number] AGE: 30 Location: [facility] Re07/29/16 SEX: F Status: REG REF SPEC: [id number] IGNACIO: 07/29/16-[address]: Cecille Roth MD REQ: [id number] RECD: 07/29/16 STATUS: SOUT _ ORDERED: LEVEL IV COMMENTS: [id number] FINAL DIAGNOSIS Uterus, endometrium, biopsy: -- Weakly proliferative endometrium. -- No evidence of hyperplasia or malignancy. PRE-OPERATIVE DIAGNOSIS Excessive menstruation GROSS DESCRIPTION The specimen is received in formalin labeled, EM BX, and consists of a 2.1 x 1.5 x 0.5 cm aggregate of dale-pena irregular soft tissue fragments and blood-tinged mucus , which is submitted entirely in one cassette. Signed (signature on file) Brittnee Lino MD 1130 END OF REPORT * ML=Testing performed at Main Lab DEPARTMENT OF PATHOLOGY, [address] [address] Kolby Chamorro M.D. Director [facility] # [id number] Procedures Date Code Description Status 11/10/2018 48638 Remove Intrauterine Device Completed 07/29/2016 76746 Echography Transvaginal Completed 07/29/2016 42501 Insert Intrauterine Device Completed 07/29/2016 29429 Biopsy Endometrial W/O Cervical Dilation Completed 07/07/2004 39423 Vaginal Delivery Only Completed Encounters Type Date Location Provider Dx Diagnosis Office Visit 09/02/2016 [facility] Cecille Roth, Z30.431 Encounter for routine 9:00a checking of intrauterine contracep dev Office Visit 06/20/2016 [facility] Cecille Roth, N92.1 Excessive and 11:30a frequent menstruation with irregular cycle E66.8 Other obesity Plan of Treatment 09/02/2016 - Cecille Roth MDZ30.431 Encounter for routine checking of intrauterine contraceptive deviceComments:Your IUD appears to be in the correct position.You may continue to have spotting or light bleeding for another 2-5 months. Call with severe pain or heavy bleeding. Return for your annual exam.
[2018-12-03 08:36] VITALS: BP 141/81
--- NOTE | 2018-12-03 08:55 | UC ---
Respiratory Complaint HPI - HPI Summary HPI Summary: 33-year-old woman comes to clinic today with a chief complaint of cough chest congestion and green sputum. She's been having wheezing and shortness of breath. Upper respiratory tract infection symptoms started a little more than a week ago. No history of asthma. She used somebody else's albuterol and that helped with the wheezing some. No recent fevers. The chest pain. Does have rhinorrhea and some sore throat no ear pain. - History of Current Complaint Chief Complaint: UCRespiratory Stated Complaint: COUGH Time Seen by Provider: 12/03/18 08:46 Hx Last Menstrual Period: 11/24/18 Pain Intensity: 0 - Allergies/Home Medications Allergies/Adverse Reactions: Allergies Allergy/AdvReac Type Severity Reaction Status Date / Time amoxicillin Allergy Swelling Verified 12/03/18 08:36 Of Face,Lips,& Throat cortisone Allergy Hives Verified 12/03/18 08:36 diphenhydramine Allergy Palpitation Verified 12/03/18 08:36 s PMH/Surg Hx/FS Hx/Imm Hx Previously Healthy: Yes Other History Of: Negative For: Anticoagulant Therapy - Surgical History Surgical History: Yes Surgery Procedure, Year, and Place: GALLBLADDER. . - Family History Known Family History: Positive: Hypertension Negative: Diabetes, Blood Disorder - Social History Alcohol Use: None Substance Use Type: None Smoking Status (MU): Former Smoker Have You Smoked in the Last Year: No Review of Systems All Other Systems Reviewed And Are Negative: Yes Constitutional: Positive: Negative Skin: Positive: Negative Eyes: Positive: Negative ENT: Positive: Sore Throat, Nasal Discharge, Sinus Congestion. Negative: Ear Ache Respiratory: Positive: Shortness Of Breath, Cough, Other - WHEEZING Cardiovascular: Positive: Negative Gastrointestinal: Positive: Negative Motor: Positive: Negative Neurovascular: Positive: Negative Musculoskeletal: Positive: Negative Neurological: Positive: Negative Psychological: Positive: Negative Is Patient Immunocompromised?: No Physical Exam Triage Information Reviewed: Yes Appearance: No Pain Distress, Well-Nourished, Ill-Appearing - MILD Vital Signs: Initial Vital Signs Temp 98.2 F 12/03/18 08:33 Pulse 82 12/03/18 08:33 Resp 17 12/03/18 08:33 BP 141/81 12/03/18 08:33 Pulse Ox 98 12/03/18 08:33 Vital Signs Reviewed: Yes Eye Exam: Normal Eyes: Positive: Conjunctiva Clear ENT: Positive: Pharyngeal erythema, Nasal congestion, Nasal drainage, TMs normal Neck exam: Normal Neck: Positive: Supple Respiratory: Positive: No respiratory distress, No accessory muscle use, Wheezing - RARE Cardiovascular: Positive: RRR Musculoskeletal Exam: Normal Musculoskeletal: Positive: Strength Intact, ROM Intact Neurological Exam: Normal Neurological: Positive: Alert Psychological Exam: Normal Psychological: Positive: Age Appropriate Behavior Skin Exam: Normal UC Diagnostic Evaluation - Laboratory O2 Sat by Pulse Oximetry: 98 Respiratory Course/Dx - Course Course Of Treatment: DISCUSSED VIRAL VERSES BACTERIAL INFECTION AND THE ROLE OF ANTIBIOTICS. THE PATIENT WISHES TO BE ON ANTIBIOTIC AT THIS TIME. - Differential Dx/Diagnosis Provider Diagnosis: Bronchitis, Bronchospasm Discharge - Sign-Out/Discharge Documenting (check all that apply): Patient Departure All imaging exams completed and their final reports reviewed: No Studies - Discharge Plan Condition: Stable Disposition: HOME Prescriptions: Albuterol HFA INHALER* [Ventolin HFA Inhaler*] 2 puff INH Q4H PRN #1 mdi PRN Reason: Wheezing Azithromyxin ROBERTO (NF) [Z-Roberto (Zithromax) 250 mg tabs #6] 2 tab PO .TODAY, THEN 1 DAILY #6 tab Patient Education Materials: Acute Bronchitis (ED), Bronchospasm (ED) Referrals: [facility] [place] [facility]FERRAL [Outside] Additional Instructions: FOLLOW UP WITH YOUR DOCTOR IF NOT COMPLETELY IMPROVED. GET RECHECKED FOR ANY WORSENING OF YOUR CONDITION OR QUESTIONS OR CONCERNS. - Billing Disposition and Condition Condition: STABLE Disposition: Home
== END 2018-12-03 09:00 | disposition home or self-care (01) ==
LOC: UCEAST 08:31
DX: J40 Bronchitis, not specified as acute or chronic (principal); J98.01 Acute bronchospasm; Z88.0 Allergy status to penicillin; Z88.8 Allergy status to other drugs, medicaments and biological substances; Z87.891 Personal history of nicotine dependence
CPT/HCPCS: 99212; G0463

== ENCOUNTER 2020-03-22 05:54 | Inpatient (IN) | payer OTHER ==
--- NOTE | 2020-03-21 20:22 | HP ---
General Information - Reason for Visit at 41 weeks, Prior Cesaeran section and BMI 42 - General Information Maternal Age: 34 Grav: 5 Para: 2 SAB: 0 IEA: 2 Estimated Due Date: 03/15/20 Determined By: LMP Gestational Age in Weeks/Days: 41 12/07 Maternal Blood Type and Rh: O Positive - Results this Serology/RPR Result: Non-Reactive Rubella Result: Non-Immune HBsAg Result: Negative HIV Result: Negative GBS Culture Result: Negative Past Medical History Delivery History: Hx C/Section, See Records Pertinent Past Medical History: See Records Past Medical History Comment: Cholecystitis Obesity BMI 42 Pertinent Past Surgical History: See Records Past Surgical History Comment: 2010 Section Twin 2010 Cholecystectomy Pertinent Family History: See Records - Antepartal Records Antepartal Records: Reviewed, Complicated by: - Postdates , Obesity and prior . Review of Systems Constitutional: Comfortable CV Complaint: No Respiratory: Shortness of Breath: No Gastrointestinal: No Nausea/Vomiting, Normal Bowel Movement Genitourinary: No Dysuria, No Bleeding, No Leaking Fluid Musculoskeletal: No Complaint, No Epigastric Pain Neurological: No Headache, No Visual Changes Movement: Normal Exam Allergies/Adverse Reactions: Allergies amoxicillin Allergy (Severe, Verified 03/20/20 14:34) Swelling Of Face,Lips,& Throat cortisone Allergy (Mild, Verified 03/20/20 14:34) Hives diphenhydramine Allergy (Verified 12/03/18 08:36) Palpitations Temp 98.7 P 84 RR 18 BP 122/80 - Measurements Height: 5 ft 8 in Weight: 324 lb Weight in lbs: 324.834938 Body Mass Index (BMI): 49.2 Pre- Weight: 276 lb Weight Gained This : 48 lbs and 0 ozs - Exam Breast: Breast Exam Deferred CVA: No CVA Tenderness Extremities: No Edema Heart: Normal Rhythm/Heart Sounds HEENT: No Significant Findings Lungs: Clear Bilaterally Rectal: Rectal Exam Deferred Reflexes: DTR 2+ Thyroid: No Thyromegaly - Abdominal Exam Abdomen Exam: Non-Tender - Ultrasound/Biophysical Profile Ultrasound Status: Not Done Targeted Exam Findings See L&D Outpatient Visit Provider Note for Findings: N/A Cervical Exam: 1cm Effacement: <50% Station: -2 Presenting Part: Vertex Membrane Status: Intact Bleeding/Discharge: None EFM Findings - External Monitor Findings Baseline Heart Rate: 140 Contractions: None Assessment/Plan - Assessment Postdates , prior section, obesity and advanced maternal age. - Obstetrical Risk Factors Obstetrical Risk Factors: Post-Dates, Obesity - BMI 42, Previous C/Section in Labor - Plan Plan: IV Hydration, Antibiotic Prophylaxis, C/S Delivery - Date/Time of Admission Date of Admission: 03/22/20 Time of Admission: 07:00
[~2020-03-22 05:54] MED LIST: Buffered Lidocaine 1% SYRIN* 1 ML/SYRINGE INTRADERM ONE
[2020-03-22] MEDS ORDERED: Lactated Ringers 1000 ML Bag* 1,000 ML IV SCH ×2 (06:00→15:00)
[2020-03-22] MEDS ORDERED: Sodium Citrate/Citric Acid* 15 ML UDC PO ONE (06:00)
[2020-03-22] MEDS ORDERED: Phenylephrine 40 MCG/ML SYRINGE ONE (07:07)
[2020-03-22] MEDS ORDERED: Morphine PF AMP (0.5MG/ML)* 5 MG/10 ML AMP ONE (07:07)
[2020-03-22] MEDS ORDERED: OXYTOCIN* 10 UNITS/ML 1 ML VIAL ONE (07:07)
[2020-03-22] MEDS ORDERED: Clindamycin 900 MG/D5W BAG(*) 900 MG/50 ML BAG IVPB ONE (07:15)
[2020-03-22] MEDS ORDERED: Naloxone* 0.4 MG/ML 1 ML VIAL IV PRN ×2 (07:34→08:42)
[2020-03-22] MEDS ORDERED: fentaNYL* 50 MCG/ML 2 ML VIAL (100 MCG VIAL) IV PRN (07:34)
[2020-03-22] MEDS ORDERED: Ondansetron INJ* 2 MG/ML VIAL IV PRN ×2 (07:34→08:42)
[2020-03-22] MEDS ORDERED: NS 0.9% IVPB ONE (07:40)
[2020-03-22] MEDS ORDERED: GENTAMICIN ADULT IVPB ONE (07:40)
[2020-03-22] MEDS ORDERED: EPHEDrine (Pressors)* 50 MG/ML VIAL ONE (08:13)
[2020-03-22 08:22] LABS: Urine Benzodiazepine Screen None Detected (None Detect); Urine Opiates Screen None Detected (None Detect)
[2020-03-22] MEDS ORDERED: Ondansetron INJ* 2 MG/ML VIAL ONE (08:34)
[2020-03-22] MEDS ORDERED: Ketorolac INJ* 30 MG/ML 1 ML VIAL ONE (08:34)
[2020-03-22] MEDS ORDERED: Bupivacaine-MPF SPINAL* 7.5 MG/ML - 2ML AMP ONE (08:35)
[2020-03-22] MEDS ORDERED: Lidocaine 2% w/ EPI 1:200,000* 20 ML SDV VIAL ONE (08:35)
[2020-03-22] MEDS ORDERED: Nalbuphine* 10 MG/ML 1 ML VIAL IV PRN (08:42)
[2020-03-22] MEDS ORDERED: oxyCODONE/Acetamin 5/325 MG* TAB PO PRN (08:42)
[2020-03-22] MEDS ORDERED: Scopolamine 1.5 mg* PATCH TRANSDERM PRN (08:42)
[2020-03-22] MEDS: Ketorolac INJ* 30 MG/ML 1 ML VIAL IV PRN ×3 (09:00→21:06)
--- NOTE | 2020-03-22 10:12 | OP ---
OPERATIVE REPORT: DATE OF OPERATION: 03/22/20 DATE OF : [birth year] SURGEON: Sujit Isaac MD. INSERTING PRESS OPERATOR SURGEON: Dr. Roth ANESTHESIA: Spinal. PRE-OP DIAGNOSES: of 41 weeks, postdates, prior section and a BMI of 42. POST-OP DIAGNOSES: of 41 weeks, postdates, prior section and a BMI of 42. OPERATIVE PROCEDURE: Repeat low transverse section. ESTIMATED BLOOD LOSS: 500 cc. SPECIMEN TO PATHOLOGY: Cord bloods. FLUIDS: She received 2100 cc of IV crystalloid fluid. URINE OUTPUT: Clear. FINDINGS: Delivery of A male over meconium stained fluid with a weight of 8 pounds 8 ounces w ith 's of 9 and 9, the placenta was grossly intact with a three-vessel cord noted. The uterus, adnexa, bowel and bladder were all within normal limits and there were no complications. DESCRIPTION OF PROCEDURE: The patient was taken to operating room where she was identified. She was placed on operating table where a spinal anesthetic was obtained without difficulty. She was then p laced into supine position with leftward tilt, prepped and draped in normal sterile fashion. A Pfann enstiel skin incision was then made with a knife and carried through to underlying layer fascia. The fascia was nicked in the midline, extended laterally with curved Oakes scissors, extended superiorly a nd inferiorly sharply. The fascia was then grasped superiorly and inferiorly with Stephen clamps and dissected off from the rectus muscle sharply. An entry into the peritoneum was confirmed using a Moraima y clamp. The peritoneum was then extended superiorly and inferiorly sharply, extended laterally. A self- retaining retractor was introduced into the patient's abdomen. A low transverse uterine incisi on was made with a knife and extended laterally with the curved Oakes scissors. The amniotic sac was ruptured, amniotic fluid was noted to be meconium stained. The 's head was then grasped with v acuums and delivered atraumatically. The rest of the infant's body was then delivered, the cord was clamped and cut. The was handed off to awaiting business teacher. Cord bloods were obtained. Th e placenta was removed manually. The uterus was then exteriorized, cleared of all clot and debris us ing moist laparotomy sponges. The uterine incision was then closed using 0-Polysorb suture in runnin g locked fashion with a second imbricating layer of 0-Polysorb suture. DICTATION ENDS ABRUPTLY... [id number]/[facility] #: [id number]
--- NOTE | 2020-03-22 10:37 | OP ---
OPERATIVE REPORT: DATE OF SURGERY: 03/22/20 DATE OF : 81 SURGEON: Dr. Isaac. CONSTRUCTION GRIP: Dr. Roth. ANESTHESIA: Spinal. PRE-OP DIAGNOSES: 1. at 41 weeks. 2. Prior section with a BMI of 42. POST-OP DIAGNOSES: 1. at 41 weeks. 2. Prior section with a BMI of 42. PROCEDURE: Repeat low transverse section with vacuum assistance of the head. ESTIMATED BLOOD LOSS: 500 cc. SPECIMENS SENT TO PATHOLOGY: Cord blood. FLUIDS: She received 2100 cc of IV crystalloid fluid. URINE OUTPUT: Clear. FINDINGS: Delivery of a male infant with meconium stained fluid with a weight of 8 pounds 8 ounces w ith Apgars of 9 and 9 with vacuum assistance. The placenta was grossly intact with a 3-vessel cord n oted. The uterus, adnexa, bowel and bladder were all within normal limits. DESCRIPTION OF PROCEDURE: The patient was taken to the operating room where she was identified. She was placed on the operating table where a spinal anesthetic was obtained without difficulty. She wa s then placed in the supine position with a leftward tilt, prepped and draped in a normal sterile fas hion. A Pfannenstiel skin incision was made with a knife and carried through to the underlying layer of fascia. The fascia was nicked in the midline, extended laterally with curved Oakes scissors. The fascia was grasped superiorly and inferiorly with Stephen clamps, dissected off sharply from the rect us muscle. The rectus muscle was in the midline bluntly. The peritoneum was identified, g rasped with pick-ups, entered sharply with Metzenbaum scissors and extended superiorly, inferiorly, s harply. A self-retaining retractor was then inserted into the patient's abdomen. A bladder flap was created. A low transverse uterine incision was made with a knife and extended laterally with bandag e scissors. The amniotic sac was ruptured and the fluid was noted to be meconium stained. The infan t's head was then grasped. There was some difficulty in delivering the 's head, therefore a va cuum was placed in the head and it was delivered atraumatically. The vacuum was removed. The rest o f the infant's body was then delivered. The cord was clamped and cut and the infant was handed off t o a waiting supervisor dry paste. Cord bloods were obtained. The placenta was removed manually. The uterus was then cleared of all clot and debris using moist laparotomy sponges in situ. The uterine incisio n was then closed using 0 Polysorb suture in a running locked fashion with a second imbricating layer of 0 Polysorb suture with good hemostasis noted. The gutters were then cleared of all clot and debr is using moist laparotomy sponges. All the sponges and instruments were removed from the patient's a bdomen. The peritoneum was then closed using 3-0 Polysorb suture in a running fashion. The fascia w as closed using 0 Polysorb suture in a running fashion and the skin was closed with 4-0 Monocryl subc uticular stitch. The patient tolerated the procedure well. Sponge, lap, and needle counts were marcus ect x2. She was then transferred to the recovery room area in stable condition. [id number]/[facility] #: [id number]
[2020-03-22] MEDS: oxyCODONE/Acetamin 5/325 MG* TAB PO PRN ×2 (13:10→17:05)
[2020-03-22] MEDS ORDERED: Glycerin ADULT SUPP PR PRN (14:20)
[2020-03-22] MEDS ORDERED: Zolpidem TAB* 5 MG PO PRN (14:20)
[2020-03-22] MEDS ORDERED: Witch Hazel PAD* JAR TOPICAL PRN (14:20)
[2020-03-22] MEDS ORDERED: Dibucaine 1% 28.35 GM TUBE PR PRN (14:20)
[2020-03-22] MEDS: Simethicone TAB* 80 MG TAB.CHEW PO SCH ×2 (17:08→21:05)
[2020-03-22] MEDS: Nicotine PATCH 14 MG/24 HR* PATCH TRANSDERM SCH (18:14)
[2020-03-22] MEDS: Docusate CAP* 100 MG PO SCH (21:05)
[2020-03-23] MEDS ORDERED: oxyCODONE TAB* 5 MG TAB PO PRN ×2 (00:31)
[2020-03-23] MEDS: Ketorolac INJ* 30 MG/ML 1 ML VIAL IV PRN (05:40)
[2020-03-23 07:25] LABS: ABS Eosinophils 0.1 10^3/ul (0-0.6); ABS Lymphocytes 1.3 10^3/ul (1.0-4.8); ABS Monocytes 0.6 10^3/ul (0-0.8); ABS Neutrophils 7.3 10^3/ul (1.5-7.7); Eosinophil % 1.5 %; Hematocrit 33 % (35-47); Hemoglobin 11.3 g/dL (12.0-16.0); Lymphocyte % 14.1 %; Mean Corpuscular HGB Conc 34 g/dL (31-36); Mean Corpuscular Hemoglobin 29 pg (27-31); Mean Corpuscular Volume 84 fL (80-97); Mean Platelet Volume 9.9 fL (7.4-10.4); Platelet Count 140 10^3/uL (150-450); Red Blood Count 3.96 10^6 /uL (3.70-4.87); Red Cell Distribution Width 15 % (10-15); White Blood Count 9.4 10^3/uL (3.5-10.8)
[2020-03-23] MEDS ORDERED: Ferrous Gluconate TAB* 324 MG TAB PO SCH (09:00)
[2020-03-23] MEDS: Docusate CAP* 100 MG PO SCH ×3 (09:03→20:06)
[2020-03-23] MEDS: Simethicone TAB* 80 MG TAB.CHEW PO SCH ×4 (09:03→20:07)
[2020-03-23] MEDS: Ibuprofen TAB* 600 MG PO PRN ×2 (13:48→20:07)
[2020-03-23] MEDS ORDERED: Acetaminophen TAB* 325 MG PO PRN (14:20)
[2020-03-23] MEDS ORDERED: Varicella Virus Vaccine Live* 0.5 ML VIAL SUBCUT ONE (17:00)
[2020-03-23] MEDS ORDERED: Measles, Mumps,Rubella VACC* 0.5 ML/VIAL SUBCUT ONE (17:00)
[2020-03-24] MEDS: Ibuprofen TAB* 600 MG PO PRN ×2 (02:16→08:44)
[2020-03-24] MEDS: Nicotine Patch Removal NOTE FOLLOW UP SCH ×2 (07:30→08:22)
[2020-03-24] MEDS: Nicotine PATCH 14 MG/24 HR* PATCH TRANSDERM SCH ×2 (08:21→09:00)
[2020-03-24 08:23] VITALS: BP 130/77
[2020-03-24] MEDS: Simethicone TAB* 80 MG TAB.CHEW PO SCH (08:44)
[2020-03-24] MEDS: Docusate CAP* 100 MG PO SCH (08:44)
[2020-03-25] MEDS ORDERED: Scopolamine PATCH Remove* 1 NOTE MISC PATCH OFF PRN (08:47)
== END 2020-03-24 11:04 | disposition home or self-care (01) | DRG 540 ==
LOC: MCHOB 05:54
PROVIDERS: ADMIT Obstetrics & Gynecology; ATTEND Obstetrics & Gynecology
PROC: 10D00Z1 Extraction of Products of Conception, Low, Open Approach (ICD-10-PCS; principal; 2020-03-22 07:45)
DX: O34.211 Maternal care for low transverse scar from previous cesarean delivery (principal); O99.214 Obesity complicating childbirth; O48.0 Post-term pregnancy; O77.0 Labor and delivery complicated by meconium in amniotic fluid; Z37.0 Single live birth; Z3A.41 41 weeks gestation of pregnancy
CPT/HCPCS: 36415; 80307; 85025; 90707; A9270-GY; G0480; J1580; J1885; J2405; J2590